=== PATIENT | male | born 1955 | race Caucasian/White ===

== ENCOUNTER 2020-05-31 19:25 | Inpatient (IN) | payer OTHER ==
[~2020-05-31] VITALS: Ht 167.6 cm; Wt 81.2 kg
[2020-05-31 19:50] VITALS: BP 79/60
--- NOTE | 2020-05-31 19:53 | NUR ---
[facility] TO ER BED 5
[2020-05-31] MEDS ORDERED: ACETAMINOPHEN EXTRA STRENGTH 500 MG TAB PO ONE (20:00)
--- NOTE | 2020-05-31 20:36 | NUR ---
PT WAS AT DIALYSIS TODAY AND AT THE END OF HIOS TREATMENT HE HAD A FEVER OF 102.0 HE ASKED TO BE BROUGHT TO THE ER. PT DENIES ANY SOB OR COUGH, STATES HE HAS HAD A FEVER SINCE SUNDAY AND HE HADN'T BEEN FEELING WELL. FELT TIRED AND LETHARGIC. PT DENIES ANY PAIN ANYWHERE. A/V SHUNT TO LEFT ARM, + THRILL AND BRUIT HX - DM, DIALYSIS NKA
[2020-05-31 20:58] LABS: BASOPHILS % (AUTO) 0.2 % (0.0-2.0); HEMATOCRIT 37.5 % (36-52); HEMOGLOBIN 12.6 g/dL (12.0-18.0); LYMPHOCYTES # (AUTO) 0.5 K/uL (2.0-11.5); LYMPHOCYTES % (AUTO) 8.8 % (20.5-51.1); MEAN CORPUSCULAR HEMOGLOBIN 29 pg (27-31); MEAN CORPUSCULAR HGB CONC 34 g/dL (33-37); MEAN CORPUSCULAR VOLUME 87.3 fL (80-94); MONOCYTES # (AUTO) 0.4 K/uL (0.8-1.0); MONOCYTES % (AUTO) 8.4 % (1.7-9.3); NEUTROPHILS # (AUTO) 4.3 K/uL (1.8-7.7); NEUTROPHILS % (AUTO) 82.6 % (42.2-75.2); PLATELET COUNT (AUTO) 177 K/uL (140-450); RED BLOOD CELL COUNT(AUTO) 4.29 MIL/uL (4.20-6.10); RED CELL DISTRIBUTION WIDTH 13.7 % (11.6-13.7); WHITE BLOOD COUNT (AUTO) 5.2 K/uL (4.8-10.8)
[2020-05-31 21:00] LABS: PROTHROMBIN TIME 10.2 secs (10.8-13.4)
[2020-05-31 21:01] LABS: C-REACTIVE PROTEIN QUANT 10.7 mg/dL (0.0-0.9)
[2020-05-31 21:07] LABS: ALBUMIN 3.2 g/dL (3.4-5.0); ANION GAP 13.2 (8-16); CARBON DIOXIDE 32.3 mmol/L (21-32); POTASSIUM 3.5 mmol/L (3.5-5.1); TOTAL BILIRUBIN 0.4 mg/dL (0.0-1.0)
[2020-05-31 21:13] LABS: LACTATE DEHYDROGENASE 247 U/L (85-227)
[2020-05-31 21:23] LABS: CREATININE 6.8 mg/dL (0.6-1.3)
[2020-05-31] MEDS ORDERED: PIPERACILLIN/TAZOBACTAM 3.375 GM in DEXTROSE 5% 50 ML IV ONE (21:40)
--- NOTE | 2020-05-31 21:40 | NUR ---
RITCHIE SWAB COLLECTED AND TAKEN TO LAB
[2020-05-31] MEDS ORDERED: PIPERACILLIN/TAZOBACTAM 3.375 GM VIAL IV ONE (22:20)
--- NOTE | 2020-05-31 22:26 | NUR ---
pt states hes unable to produce urine, he is a dialysis pt. md alonzo aware
[2020-05-31] MEDS ORDERED: DEXAMETHASONE 4 MG/ML VIAL IVP ONE (22:45)
[2020-05-31] MEDS ORDERED: DEXAMETHASONE 10 MG/ML VIAL ONE (23:15)
--- NOTE | 2020-05-31 23:40 | NUR ---
JENNIFER REARDON COLLECTED AND TAKEN TO LAB
--- NOTE | 2020-05-31 23:53 | NUR ---
CALLED PT'S DAUGHTER, HANNAH AT [phone] TO GIVE UPDATE FOR GHER FATHER. ADVISED HE IS GOING TO BE ADMITTED TO THE HOSPITAL DUE TO + COVID AND FEVER.
--- NOTE | 2020-06-01 00:30 | NUR ---
PT REMAINS ON BEDSIDE MONITOR AND O2 N/C AT 4L. B/P IS 79/45, PT SAYS HIS BLOOD PRESSURE USUALLY RUNS LOW. DENIES ANY DIZZINESS, NO VISION PROBLEMS, NO SOB, PT REMAINS AFEBRILE AT THIS TIME
[2020-06-01] MEDS ORDERED: ALBUTEROL HFA MDI 90 MCG/ACTUATION 8 GM INH PRN (00:50)
[2020-06-01] MEDS ORDERED: POTASSIUM CHLORIDE 10 MEQ TABER PO PRN (00:50)
[2020-06-01] MEDS ORDERED: DEXTROSE 50% 50 ML SYR IVP PRN (00:50)
[2020-06-01] MEDS ORDERED: ACETAMINOPHEN 325 MG TAB PO PRN (00:50)
[2020-06-01] MEDS ORDERED: DOCUSATE SODIUM 100 MG GELCAP PO PRN (00:50)
[2020-06-01] MEDS ORDERED: ONDANSETRON 4 MG/2 ML VIAL IM/IVP PRN (00:50)
--- NOTE | 2020-06-01 00:55 | NUR ---
PT HAVING BACK PAIN 5/10 WILL MEDICATE ORDERED.
[2020-06-01] MEDS ORDERED: HYDROcodone/APAP 7.5/325 MG 1 TAB ONE (01:00)
[2020-06-01] MEDS ORDERED: cefTRIAXone 1,000 MG VIAL ONE (01:00)
[2020-06-01 01:49] LABS: CHOL/HDL RATIO 3.7 (1-4.5); FREE T4 (FREE THYROXINE) 1.2 ng/dL (0.76-1.46); PHOSPHORUS 3.1 mg/dL (2.5-4.9); THYROID STIMULATING HORMONE 1.16 uIU/mL (0.34-3.74)
--- NOTE | 2020-06-01 02:05 | NUR ---
PT RESTING IN BED WITH EYES CLOSED. RESPIRATIONS REGULAR EVEN AND UNLABORED. REMAINS ON BEDSIDE MONITOR AND 02 AT 4L NC
[2020-06-01] MEDS ORDERED: INSU100I7 SQ (03:34)
[2020-06-01] MEDS ORDERED: CARV3.12 PO (03:34)
[2020-06-01] MEDS ORDERED: ATOR40TA PO (03:34)
[2020-06-01] MEDS ORDERED: FISH100053 PO (03:34)
[2020-06-01] MEDS ORDERED: FURO-570 PO (03:34)
[2020-06-01] MEDS ORDERED: ASPI-1884 PO (03:34)
--- NOTE | 2020-06-01 03:34 | NUR ---
GOT HOME MEDS FROM PT. HE ALSO TAKES INSULIN 22 UNITS 3 X DALILY BUT DOES NOT KNOW THE NAME OF THE MED.
[2020-06-01] MEDS: HYDROcodone/APAP 7.5/325 MG 1 TAB PO PRN ×3 (03:38→17:26)
--- NOTE | 2020-06-01 03:39 | NUR ---
BACK PAIN 08/25
--- NOTE | 2020-06-01 05:15 | NUR ---
PT SLEEPING, RESPIRATIONS REGULAR EVEN AND UNLABORED. REMAINS ON BEDSIDE MONITOR AND 02 4L NC. WILL CONTINUE TO MONITOR
--- NOTE | 2020-06-01 05:18 | NUR ---
Note michael in EDM - 06/01/20 at 0519 by [facility] PT SLEEPING. RESPIRATIONS REMAINS REGULAR EVEN AND UNLABORED. PT ON BEDISDE MOITOR AND O2 AT 15L NONREBREATHER.
--- NOTE | 2020-06-01 05:51 | NUR ---
SPOKE WITH PT'S DAUGHTER, HANNAH, SHE WAS CALLING TO SEE IF THERE WAS ANY UPDATES AT THIS TIME. ADVISED FATHER REMAINS IN THE ER AND WE ARE JUST WAITING FOR A ROOM FOR HIM AND HE IS CURRENTLY STABLE.
--- NOTE | 2020-06-01 07:19 | NUR ---
Pt report given to TOREY SOSA. Transfer of care at this time.
[2020-06-01] MEDS: BLOOD GLUCOSE MONITORING 1 DEV DEV FS SCH ×4 (07:52→21:00)
[2020-06-01] MEDS: INSULIN LISPRO SLIDING SCALE 100 UNITS/ML VIAL SUBQ PRN ×4 (07:59→22:28)
[2020-06-01] MEDS ORDERED: AZITHROMYCIN 250 MG TAB PO SCH (09:00)
[2020-06-01] MEDS: ZINC SULF 220 MG CAP PO SCH (09:01)
[2020-06-01] MEDS: ASCORBIC ACID 500 MG TAB PO SCH (09:01)
--- NOTE | 2020-06-01 09:03 | NUR ---
Dr. Canseco is evaluating the patient at bedside.
--- NOTE | 2020-06-01 15:34 | NUR ---
PATIENT HAS BEEN SCREENED AND CATEGORIZED MODERATE NUTRITION RISK. PATIENT WILL BE SEEN WITHIN 3-5 DAYS OF ADMISSION. 06/03/20 06/05/[address]
[2020-06-01] MEDS ORDERED: VANCOMYCIN PER PHARMACY MC PRN (16:00)
[2020-06-01] MEDS ORDERED: CEFEPIME 1,000 MG VIAL ONE (16:21)
[2020-06-01] MEDS: CEFEPIME 1,000 MG in DEXTROSE 5% 50 ML IV SCH (16:35)
[2020-06-01] MEDS ORDERED: VANCOMYCIN 1,000 MG VIAL ONE (17:18)
--- NOTE | 2020-06-01 17:24 | NUR ---
PT WHEELED TO [place] AT THIS TIME.
[2020-06-01] MEDS ORDERED: VANCOMYCIN 1,000 MG in DEXTROSE 5% 250 ML IV SCH (17:30)
--- NOTE | 2020-06-01 17:50 | NUR ---
UNABLE TO PRODUCE URINE AT THIS TIME
--- NOTE | 2020-06-01 18:15 | NUR ---
PT ABLE TO PRODUCE URINE AT THIS TIME. HANDED TO SHARON PETTIT
[2020-06-01 18:45] LABS: APPEARANCE,URINE CLEAR (CLEAR); BILIRUBIN,URINE NEGATIVE (NEGATIVE); BLOOD, URINE 1+ (NEGATIVE); COLOR,URINE YELLOW (YELLOW); LEUKOCYTE ESTERASE ,URINE NEGATIVE (NEGATIVE); NITRITE, URINE NEGATIVE (NEGATIVE); UGLUCOSE 3+ (NEGATIVE)
--- NOTE | 2020-06-01 19:11 | NUR ---
REPORT GIVEN TO SHEILA HERZOG. TRANSFER OF CARE AT THIS TIME.
--- NOTE | 2020-06-01 19:15 | NUR ---
RECEIVED PT SITTING ON SIDE OF BED. DENIES PAIN OR DISCOMFORT. REQUESTS DAUGHTER, KIKI ([phone]) BE UPDATED. PT STATES HE HAS BEEN TAKING INSULIN 4 TIMES PER DAY AND HE RECEIVES HD SUNDAY, SUNDAY, AND SUNDAY. ATE APPROX 50 % OF DINNER TRAY.
[2020-06-01 19:54] LABS: WBC,URINE 0-5 /HPF (0-5)
--- NOTE | 2020-06-01 20:55 | NUR ---
REPORT CALLED TO JAIRO SOSA. PT TO BE ADMITTED TO ROOM 118.
--- NOTE | 2020-06-01 21:05 | NUR ---
TO 118 VIA GURNEY, ATTACHED TO CM.
[2020-06-01 21:10] VITALS: BP 106/67
--- NOTE | 2020-06-01 21:10 | NUR ---
PT ARRIVED FROM ED TO UNIT. REPORT RECEIVED PRIOR. PT AAOX4, AMBULATORY, ABLE TO MAKE NEEDS KNOWN. CALM AND COOPERATIVE TO CARE. RESPIRATIONS EVEN AND UNLABORED TO ROOM AIR. PT DENIES ANY SOB OR DISTRESS. ABDOMEN IS SOFT AND NON-TENDER, ACTIVE BOWEL SOUNDS NOTED. SKIN IS WARM, DRY, AND INTACT. PT WITH IV ACCESS ON RIGHT FA G20 PATENT AND INTACT, SALINE LOCKED. PT ALSO ON HEMODIALYSIS --, HD ACCESS ON LEFT AV FISTULA IN PLACE. PT DENIES ANY PAIN OR DISCOMFORT AT THIS TIME. VS TAKEN, STABLE. MRSA SWAB TAKEN. PT HOOKED TO TELE MONITOR. PT WELCOMED AND ORIENTED TO ROOM. PT KEPT COMFORTABLE. NO REQUESTS MADE. CALL LIGHT WITHIN REACH. WILL CONTINUE TO MONITOR.
--- NOTE | 2020-06-01 23:55 | NUR ---
VS STABLE. PT IN BED RESTING. NO COMPLAINTS MADE AT THIS TIME. NO S/SX OF DISTRESS OR PAIN NOTED. PT KEPT COMFORTABLE. SAFETY MEASURES IN PLACE, CALL LIGHT WITHIN REACH, WILL CONTINUE TO MONITOR.
[2020-06-02] VITALS: BP 95/55
--- NOTE | 2020-06-02 01:57 | NUR ---
ASLEEP. PT ON SIDE LYING POSITION. PT NOT IN DISTRESS. VISIBLE CHEST RISE AND FALL NOTED. NO S/SX OF DISCOMFORT NOTED. PT KEPT COMFORTABLE. CALL LIGHT WITHIN REACH. WILL CONTINUE TO MONITOR.
[2020-06-02 04:00] VITALS: BP 112/76
--- NOTE | 2020-06-02 04:07 | NUR ---
PT SEEN AND ASSESSED. FOUND PT ON ROOM AIR WITH SPO2 OF 93%. PT IS IN NO RESPIRATORY DISTRESS AT THIS TIME. WILL CONTINUE TO MONITOR PT.
--- NOTE | 2020-06-02 04:10 | NUR ---
VS STABLE. PT NOT IN DISTRESS, DENIES ANY PAIN OR DISCOMFORT. NO REQUESTS MADE AT THIS TIME. PT KEPT COMFORTABLE. SAFETY MEASURES IN PLACE. CALL LIGHT WITHIN REACH. WILL CONTINUE TO MONITOR.
[2020-06-02] MEDS: BLOOD GLUCOSE MONITORING 1 DEV DEV FS SCH ×3 (06:45→16:30)
[2020-06-02] MEDS: INSULIN LISPRO SLIDING SCALE 100 UNITS/ML VIAL SUBQ PRN ×2 (06:46→12:51)
--- NOTE | 2020-06-02 07:33 | NUR ---
endorsed to day shift nurse for continuity of care
--- NOTE | 2020-06-02 07:35 | NUR ---
REC'D BEDSIDE ENDORSEMENT FROM NIGHTSHIFT NURSE. WILL CONTINUE W/ CONTINUITY OF CARE.
[2020-06-02 08:35] LABS: T4 (THYROXINE) 7.4 ug/dL (4.5-12.0)
[2020-06-02 09:10] LABS: ANION GAP 18.2 (8-16); CARBON DIOXIDE 28.2 mmol/L (21-32); POTASSIUM 4.4 mmol/L (3.5-5.1)
[2020-06-02 09:23] LABS: MAGNESIUM 2.7 mg/dL (1.8-2.4); PHOSPHORUS 7.7 mg/dL (2.5-4.9)
[2020-06-02 09:28] LABS: CREATININE 9.8 mg/dL (0.6-1.3)
--- NOTE | 2020-06-02 09:34 | NUR ---
REC'D CRITICAL LAB VALUES FROM PABLO. BUN 83 AND CREATININE 9.8. PATIENT SCHED TO HAVE DIALYSIS TODAY.
[2020-06-02] MEDS: ZINC SULF 220 MG CAP PO SCH (09:40)
[2020-06-02] MEDS: ASCORBIC ACID 500 MG TAB PO SCH (09:41)
--- NOTE | 2020-06-02 09:56 | NUR ---
ADMINISTERED SCHED MEDS PER MD ORDER. PATIENT TOLERATED WELL. MEDICATION EDUCATION PROVIDED. PATIENT VERBALIZED UNDERSTANDING. SAFETY MEASURES IN PLACE. WILL CONT TO MONITOR
[2020-06-02 11:40] LABS: HEMOGLOBIN 12.4 g/dL (12.0-18.0); LYMPHOCYTES # (AUTO) 0.7 K/uL (2.0-11.5); MEAN CORPUSCULAR VOLUME 88.2 fL (80-94); MONOCYTES # (AUTO) 0.7 K/uL (0.8-1.0)
[2020-06-02 12:03] LABS: BASOPHILS % (AUTO) 0.1 % (0.0-2.0); HEMATOCRIT 37.4 % (36-52); LYMPHOCYTES % (AUTO) 5.8 % (20.5-51.1); MEAN CORPUSCULAR HEMOGLOBIN 29 pg (27-31); MEAN CORPUSCULAR HGB CONC 33 g/dL (33-37); MONOCYTES % (AUTO) 6.1 % (1.7-9.3); NEUTROPHILS # (AUTO) 10.5 K/uL (1.8-7.7); PLATELET COUNT (AUTO) 222 K/uL (140-450); RED BLOOD CELL COUNT(AUTO) 4.24 MIL/uL (4.20-6.10); RED CELL DISTRIBUTION WIDTH 13.8 % (11.6-13.7)
[2020-06-02] MEDS: SEVELAMER CARBONATE 800 MG TAB PO SCH ×2 (12:50→17:00)
--- NOTE | 2020-06-02 12:56 | NUR ---
ADMINISTERED PRESCRIBED MEDS AND INSULIN PRN PER MD ORDER. PATIENT TOLERATED WELL. ABLE TO MAKE NEEDS KNOWN. MEDICATION EDUCATION PROVIDED. PATIENT VERBALIZED UNDERSTANDING. SAFETY MEASURES IN PLACE. WILL CONT TO MONITOR
[2020-06-02 14:06] VITALS: BP 128/87
--- NOTE | 2020-06-02 14:15 | NUR ---
PATIENT UNDERGOING HD. HD NURSE AT BEDSIDE.
[2020-06-02] MEDS ORDERED: DEXA6TAB1 PO (14:34)
[2020-06-02] MEDS ORDERED: ACET-9800 PO (14:34)
[2020-06-02] MEDS ORDERED: AMOX-999 PO (14:34)
[2020-06-02] MEDS ORDERED: VITC500 PO (14:34)
[2020-06-02] MEDS ORDERED: ZINC220C28 PO (14:34)
[2020-06-02] MEDS ORDERED: ALBU0.0912 IH (14:35)
[2020-06-02] MEDS: CEFEPIME 1,000 MG in DEXTROSE 5% 50 ML IV SCH (16:13)
--- NOTE | 2020-06-02 16:23 | NUR ---
ADMINISTERED PRESCRIBED MEDS PER MD ORDER. PATIENT TOLERATED WELL. MEDICATION EDUCATION PROVIDED. PATIENT VERBALIZED UNDERSTANDING. SAFETY MEASURES IN PLACE. WILL CONT TO MONITOR.
--- NOTE | 2020-06-02 16:24 | NUR ---
SOCIAL WORK NOTE: Patient's Orientation Unable To Assess Information Provided By HANNAH GROVE - DAUGHTER Comments SW WAS UNABLE TO MEET PATIENT AT BEDSIDE DUE TO MEDICAL CONDITION. SW COMPLETED ASSESSMENT WITH DAUGHTER. Nanotechnician, Realtionship and Phone Number HANNAH GROVE DAUGHTER [phone] Healthcare Power of Senior Salesforce Developer No Does Patient Have a POLST No Identifying Problems No Social Work Triggers Is A Social Work Consult Needed No Mandate Report Filed No Explanation Of Identifying Problems PATIENT IS A 64-YEAR-OLD MALE ADMITTED FOR HYPOXIA AND FEVER. PATIENT HAS PMHX OF DIABETES AND HYPERTENSION. PATIENT'S DAUGHTER REPORTED NO HISTORY OF SUBSTANCE ABUSE OR MENTAL HEALTH. Admitted From Home Pre-Admission Level Of Functioning Status Independent/Ambulatory Prior Resources/Services Used In Last 12 Months No Prior Resources Used Prior DME No Prior DME Used Dialysis Hemodialysis Name And Phone Number of Dialysis Facility [facility] Time [address] Lives With Spouse Patient Had Caregiver No Home Support No Caregiver Issues Financial Issues No Known Financial Issue Referral To The Financial Counselor Needed No Factors/Needs No D/C Needs Identified Explanation And Or Other Factors Affecting/Possible DC Needs PATIENT'S DAUGHTER STATED SHE WOULD ARRANGE TRANSPORTATION FOR PATIENT HOME. Pt/Rep Participated In Discharge Plan Yes Patient/Family Agress With Discharge Plan Yes Discharge Plan Comments TENTATIVE DISCHARGE PLAN IS FOR PATIENT TO RETURN HOME. DC Plan Status Initiated
--- NOTE | 2020-06-02 16:31 | NUR ---
DC PLANNIN YR SOLD MALE PATIENT WAS ADMITTED FROM HOME WITH A DX OF HYPOXIA FEVER ESRD TACHYCARDIA AND COVID. PT HAS A HX OF HTN ESRD DM DM HTN . CXR SHOWED RAPID TEST POSITIVE PCR IS PENDING. STARTED COVID PROTOCOL ON O2 4L/NC CONSULTED WITH PULMO AND ID .DC PLAN TO GO HOME WHEN STABLE CM TO FOLLOW
[2020-06-02 16:54] VITALS: BP 95/61
--- NOTE | 2020-06-02 18:53 | NUR ---
PATIENT IS DISCHARGED. PATIENT HAS ALL BELONGINGS AND DISCHARGE PAPERWORK. PATIENT WAS ESCORTED OUT TO FAMILY MEMBER CAR. PATIENT IS AWARE TO VISIT ER FOR WORSENING PAIN, FEVER, SOB, OR SWELLING. PATIENT IS STABLE.
--- NOTE | 2020-06-03 15:09 | NUR ---
COVID RESULTS RECEIVED FROM LAB. RESULTS= POSITIVE.
== END 2020-06-02 17:50 | disposition home or self-care (01) | DRG 871 ==
LOC: MED 19:25 → MTU 06-01 00:02
PROVIDERS: ADMIT Emergency Medicine; ATTEND Emergency Medicine
PROC: 5A1D70Z Performance of Urinary Filtration, Intermittent, Less than 6 Hours Per Day (ICD-10-PCS; principal; 2020-06-02)
DX: A41.9 Sepsis, unspecified organism (principal); J96.01 Acute respiratory failure with hypoxia; N18.6 End stage renal disease; U07.1 COVID-19; J12.89 Other viral pneumonia; N17.0 Acute kidney failure with tubular necrosis; I12.0 Hypertensive chronic kidney disease with stage 5 chronic kidney disease or end stage renal disease; R91.1 Solitary pulmonary nodule; E11.22 Type 2 diabetes mellitus with diabetic chronic kidney disease; Z99.2 Dependence on renal dialysis; Z79.82 Long term (current) use of aspirin; Z79.899 Other long term (current) drug therapy; Z79.4 Long term (current) use of insulin
CPT/HCPCS: 36415; 36600; 71045; 71250; 80048; 80053; 81001; 82550; 82728; 82803; 82948; 83036; 83605; 83615; 83735; 83880; 84100; 84436; 84439; 84443; 84479; 84484; 85025; 85379; 85384; 85610; 85730; 86140; 86900; 86901; 87040; 87081; 87086; 93005; 96365; 96375; 99291; J0692; J0696; J1100; J1644; J2543; J3370; J7060; U0003